=== PATIENT | female | born 1975 | race Caucasian/White ===

== ENCOUNTER 2019-05-06 07:53 | Day surgery (SDC) | payer BC ==
[~2019-05-06] VITALS: Ht 152.4 cm; Wt 48.1 kg
[~2019-05-06 07:53] MED LIST: CEFAZOLIN 2 GM IVPB PREMIX 50 ML IV ONE
[2019-05-06] MEDS ORDERED: HYDROcodone/ACETAMIN 5-325 MG TAB (NORCO/ VICODIN) PO PRN (10:45)
[2019-05-06] MEDS ORDERED: fentaNYL CITRATE/PF 100 MCG/2 ML AMP IVP PRN ×2 (10:45)
[2019-05-06] MEDS ORDERED: ONDANSETRON HCL 4 MG/2 ML VIAL IVP PRN ×2 (10:45)
[2019-05-06] MEDS ORDERED: OXYCODONE/ACETAMINOPHEN 5-325 TABLET PO PRN (10:45)
[2019-05-06] MEDS ORDERED: MIDAZOLAM HCL 5 MG/ML VIAL (VERSED) IV ONE (10:55)
[2019-05-06] MEDS ORDERED: ROCURONIUM BROMIDE 10 MG/ML (ZEMURON) ONE (10:55)
[2019-05-06] MEDS ORDERED: ONDANSETRON HCL 4 MG/2 ML VIAL ONE (10:55)
[2019-05-06] MEDS ORDERED: NS 1000 ML IV.SOLN IV ONE (10:55)
[2019-05-06] MEDS ORDERED: BUPIVACAINE /PF 0.5% 30 ML VIAL ONE (10:55)
[2019-05-06] MEDS ORDERED: SEVOFLURANE 15 MIN GAS INH ONE (10:55)
[2019-05-06] MEDS ORDERED: PROPOFOL 200MG/ 20ML VIAL (DIPRIVAN) IV ONE (10:55)
[2019-05-06] MEDS ORDERED: fentaNYL CITRATE/PF 100 MCG/2 ML AMP ONE ×2 (10:55→11:31)
[2019-05-06] MEDS ORDERED: NS IRRIG SOLN 1000 ML IR ONE (10:55)
[2019-05-06] MEDS ORDERED: HYDROcodone/ACETAMIN 5-325 MG TAB (NORCO/ VICODIN) ONE (12:33)
[2019-05-06 12:37] VITALS: BP_SYST 106
== END 2019-05-06 13:30 | disposition home or self-care (01) ==
LOC: SDS 07:53 → SMU 07:53 → SDS 13:30
PROVIDERS: ATTEND Specialist
DX: R10.2 Pelvic and perineal pain (principal); N92.0 Excessive and frequent menstruation with regular cycle; N93.8 Other specified abnormal uterine and vaginal bleeding; Z85.9 Personal history of malignant neoplasm, unspecified; K21.9 Gastro-esophageal reflux disease without esophagitis; N84.0 Polyp of corpus uteri; N80.9 Endometriosis, unspecified
CPT/HCPCS: 49329; 58558; 88305; C1727; J0690; J2250; J2405; J2704; J3010; J3490; J7030; J7120